=== PATIENT | male | born 1945 | race Caucasian/White ===

== ENCOUNTER 2018-11-11 06:18 | Day surgery (SDC) | payer MEDICARE ==
[~2018-11-11] VITALS: Ht 172.7 cm; Wt 110.0 kg
[2018-11-11 06:54] VITALS: BP 89/62
[2018-11-11] MEDS ORDERED: SENN-88 PO (07:20)
[2018-11-11] MEDS ORDERED: ATOR10TA9 PO (07:20)
[2018-11-11] MEDS ORDERED: insulin novolog SQ (07:20)
[2018-11-11] MEDS ORDERED: EPLE50TA PO (07:20)
[2018-11-11] MEDS ORDERED: ALLO100T30 PO (07:20)
[2018-11-11] MEDS ORDERED: AMIO200T42 PO (07:20)
[2018-11-11] MEDS ORDERED: ASPI81TA45 PO (07:20)
[2018-11-11] MEDS ORDERED: POTA20TA89 PO (07:20)
[2018-11-11] MEDS ORDERED: ISOS20TA58 PO (07:20)
[2018-11-11] MEDS ORDERED: WARF7.5T46 PO (07:20)
[2018-11-11] MEDS ORDERED: RANI150C PO (07:20)
[2018-11-11] MEDS ORDERED: FERR325T18 PO (07:20)
[2018-11-11] MEDS ORDERED: BUDE10.22 INH (07:20)
[2018-11-11] MEDS ORDERED: INSU100I13 SQ ×2 (07:20)
[2018-11-11] MEDS ORDERED: FURO-92 PO (07:20)
[2018-11-11] MEDS ORDERED: ISOS10TA2 PO (07:20)
[2018-11-11] MEDS ORDERED: WARF-36 PO (07:20)
[2018-11-11] MEDS ORDERED: SACU1TAB PO (07:20)
[2018-11-11] MEDS ORDERED: GABA600T7 PO (07:20)
[2018-11-11] MEDS ORDERED: METO5TAB5 PO (07:20)
[2018-11-11] MEDS ORDERED: CARV6.252 PO (07:20)
[2018-11-11] MEDS ORDERED: MEXITIL PO (07:20)
[2018-11-11] MEDS ORDERED: CHOL40002 PO (07:20)
[2018-11-11 07:34] LABS: INTERNATIONAL NORMALIZED RATIO 2.65 (0.93-1.1); PROTHROMBIN TIME 26.8 Seconds (9.6-11.5)
[2018-11-11 07:35] LABS: ANION GAP 7 mmol/L (5-15); CALCIUM 9.3 mg/dL (8.5-10.1); CHLORIDE 102 mmol/L (98-107); CREATININE 1.85 mg/dL (0.7-1.3)
[2018-11-11] MEDS ORDERED: PROPOFOL 10 MG/ML, 20ML ONE (16:16)
== END 2018-11-11 09:34 | disposition home or self-care (01) ==
LOC: CACL 06:18
PROVIDERS: ATTEND Internal Medicine Cardiovascular Disease
DX: I48.0 Paroxysmal atrial fibrillation (principal); E78.5 Hyperlipidemia, unspecified; I12.9 Hypertensive chronic kidney disease with stage 1 through stage 4 chronic kidney disease, or unspecified chronic kidney disease; N18.9 Chronic kidney disease, unspecified; E78.6 Lipoprotein deficiency; I47.2 Ventricular tachycardia; I11.0 Hypertensive heart disease with heart failure; I50.9 Heart failure, unspecified; I42.9 Cardiomyopathy, unspecified; Z79.82 Long term (current) use of aspirin; Z95.810 Presence of automatic (implantable) cardiac defibrillator; Z85.118 Personal history of other malignant neoplasm of bronchus and lung
CPT/HCPCS: 36415; 80048; 85610; 92960; J2704

== ENCOUNTER 2018-12-11 06:28 | Day surgery (SDC) | payer MEDICARE ==
[~2018-12-11] VITALS: Ht 172.7 cm; Wt 108.0 kg
[~2018-12-11 06:28] MED LIST: ALLO100T30 PO; AMIO200T42 PO; ASPI81TA45 PO; ATOR10TA9 PO; BUDE10.22 INH; CARV6.252 PO; CHOL40002 PO; EPLE50TA PO; FERR325T18 PO; FURO-92 PO; GABA600T7 PO; INSU100I13 SQ; ISOS10TA2 PO; ISOS20TA58 PO; METO5TAB5 PO; MEXITIL PO; POTA20TA89 PO; RANI150C PO; SACU1TAB PO; SENN-88 PO; WARF-36 PO; WARF7.5T46 PO; insulin novolog SQ
[2018-12-11] MEDS ORDERED: SODIUM CHLORIDE 0.9% 500 ML IV PRN (06:40)
[2018-12-11] MEDS ORDERED: BETA15CR5 TP (07:26)
[2018-12-11 07:27] VITALS: BP 99/62
[2018-12-11] MEDS ORDERED: PROPOFOL 10 MG/ML, 20ML ONE (07:47)
== END 2018-12-11 08:50 | disposition home or self-care (01) ==
LOC: CACL 06:28
PROVIDERS: ATTEND Internal Medicine Cardiovascular Disease
DX: I48.91 Unspecified atrial fibrillation (principal); I10 Essential (primary) hypertension; E78.5 Hyperlipidemia, unspecified; Z79.82 Long term (current) use of aspirin
CPT/HCPCS: 92960; J2704

== ENCOUNTER 2018-12-16 22:55 | Inpatient (IN) | payer MEDICARE ==
[~2018-12-16] VITALS: Ht 172.7 cm; Wt 108.5 kg
[~2018-12-16 22:55] MED LIST changes: +BETA15CR5 TP
--- NOTE | 2018-12-16 23:20 | NUR ---
PT RESTING ON GURNEY WITH HOB ELEVATED. OXYGEN AT 2 LITER NASAL CANNULA. VPACED ON [facility] 80-90'S. PT HAS HX OF AFIB WITH 2 CARDIOVERSIONS DONE THE LAST BEING ON December. PT ALSO HAS HX OF SMALL CELL LUNG CANCER WITH RADIATION. PT STATES "HE JUST DOESN'T FEEL WELL, FEELS LIKE MY HEART IS POUNDING." PT DENIES ANY CHEST PAIN.
[2018-12-16 23:51] LABS: BASOPHILS # (AUTO) 0.01 x10^3/uL (0-0.1); BASOPHILS % (AUTO) 0 % (0-1); EOSINOPHILS # (AUTO) 0.17 x10^3/uL (0-0.4); EOSINOPHILS % (AUTO) 3 % (1-7); LYMPHOCYTES # (AUTO) 0.45 x10^3/uL (1-3.4); LYMPHOCYTES % (AUTO) 8 % (22-44); MD NO; MEAN CORPUSCULAR HEMOGLOBIN 31.6 pg (27.5-34.5); MEAN CORPUSCULAR HGB CONC 33.5 g/dL (33.2-36.2); MEAN CORPUSCULAR VOLUME 94.3 fL (81-97); MEAN PLATELET VOLUME 9.5 fL (7.4-10.4); MONOCYTES # (AUTO) 0.88 x10^3/uL (0.2-0.8); MONOCYTES % (AUTO) 15 % (2-9); NEUTROPHILS # (AUTO) 4.44 x10^3/uL (1.8-6.8); NEUTROPHILS % (AUTO) 75 % (42-75); PLATELET COUNT 106 x10^3/uL (130-400); RED BLOOD COUNT 4.46 x10^6/uL (4.38-5.82); RED CELL DISTRIBUTION WIDTH 19.9 % (9.4-14.8)
[2018-12-17] VITALS (8 sets, daily range): BP systolic 80–122; BP diastolic 60–85
[2018-12-17 00:01] LABS: ALANINE AMINOTRANSFERASE 40 U/L (12-78); ALBUMIN 3.1 g/dL (3.4-5.0); ANION GAP 11 mmol/L (5-15); CALCIUM 8.5 mg/dL (8.5-10.1); CHLORIDE 100 mmol/L (98-107); CREATININE 2.55 mg/dL (0.7-1.3)
[2018-12-17 00:06] LABS: ALKALINE PHOSPHATASE 101 U/L (45-117); BILIRUBIN,TOTAL 0.3 mg/dL (0.2-1.0); FREE T4 (FREE THYROXINE) 1.22 ng/dL (0.76-1.46); TOTAL PROTEIN 6.3 g/dL (6.4-8.2); TROPONIN I 0.018 ng/mL (0.000-0.045)
[2018-12-17] MEDS ORDERED: POTASSIUM CHLORIDE 20 MEQ TAB.ER.PRT ONE (00:11)
[2018-12-17 00:12] LABS: THYROID STIMULATING HORMONE 0.409 mIU/L (0.358-3.740)
--- NOTE | 2018-12-17 00:15 | NUR ---
DR. CORTES AT BEDSIDE UPDATING PT ON POC.
[2018-12-17 00:25] LABS: INTERNATIONAL NORMALIZED RATIO 3.36 (0.93-1.1); PROTHROMBIN TIME 33.7 Seconds (9.6-11.5)
[2018-12-17] MEDS ORDERED: POTASSIUM CHLORIDE 20 MEQ TAB.ER.PRT PO ONE (00:30)
--- NOTE | 2018-12-17 01:08 | NUR ---
[facility] AT BEDSIDE.
[2018-12-17] MEDS ORDERED: AMIODARONE 900 MG in DEXTROSE 5% 482 ML IV PRN (01:30)
[2018-12-17] MEDS ORDERED: ONDANSETRON ODT 4 MG PO PRN (01:30)
[2018-12-17] MEDS ORDERED: ACETAMINOPHEN 325 MG TABLET PO PRN (01:30)
[2018-12-17] MEDS ORDERED: MAGNESIUM SULFATE PMX 2GM/50ML 50 ML IV ONE (03:00)
[2018-12-17] MEDS ORDERED: GLUCAGON 1 MG IM PRN (06:30)
[2018-12-17] MEDS ORDERED: DEXTROSE 50%, 50ML SYRINGE IVPush PRN (06:30)
[2018-12-17] MEDS ORDERED: DEXTROSE 4 GM TAB.CHEW PO PRN (06:30)
[2018-12-17] MEDS ORDERED: ALBUTEROL SULFATE 2.5 MG/3 ML NPPB SCH (07:00)
[2018-12-17 07:35] LABS: INTERNATIONAL NORMALIZED RATIO 3.1 (0.93-1.1); PROTHROMBIN TIME 31.2 Seconds (9.6-11.5)
[2018-12-17 07:38] LABS: MD NO; MEAN CORPUSCULAR HEMOGLOBIN 30.3 pg (27.5-34.5); MEAN CORPUSCULAR HGB CONC 32.4 g/dL (33.2-36.2); MEAN CORPUSCULAR VOLUME 93.6 fL (81-97); MEAN PLATELET VOLUME 10.2 fL (7.4-10.4); PLATELET COUNT 112 x10^3/uL (130-400); RED BLOOD COUNT 4.67 x10^6/uL (4.38-5.82); RED CELL DISTRIBUTION WIDTH 19.3 % (9.4-14.8)
[2018-12-17 07:39] LABS: BASOPHILS % (AUTO) 0 % (0-1); EOSINOPHILS % (AUTO) 3 % (1-7); LYMPHOCYTES % (AUTO) 7 % (22-44); MONOCYTES % (AUTO) 16 % (2-9); NEUTROPHILS % (AUTO) 74 % (42-75)
[2018-12-17 07:40] LABS: EOSINOPHILS # (AUTO) 0.16 x10^3/uL (0-0.4); LYMPHOCYTES # (AUTO) 0.43 x10^3/uL (1-3.4); MONOCYTES # (AUTO) 0.94 x10^3/uL (0.2-0.8); NEUTROPHILS # (AUTO) 4.28 x10^3/uL (1.8-6.8)
[2018-12-17 07:56] LABS: ALBUMIN 3.2 g/dL (3.4-5.0); ANION GAP 9 mmol/L (5-15); CALCIUM 8.9 mg/dL (8.5-10.1); CHLORIDE 101 mmol/L (98-107)
[2018-12-17 07:59] LABS: ALANINE AMINOTRANSFERASE 42 U/L (12-78); ALKALINE PHOSPHATASE 101 U/L (45-117); BILIRUBIN,TOTAL 0.5 mg/dL (0.2-1.0); CREATININE 1.98 mg/dL (0.7-1.3); TOTAL PROTEIN 6.5 g/dL (6.4-8.2)
[2018-12-17 08:09] LABS: TROPONIN I 0.026 ng/mL (0.000-0.045)
[2018-12-17 08:19] LABS: MICROSCOPIC NOT IND
[2018-12-17] MEDS ORDERED: GABAPENTIN 300 MG CAPSULE PO SCH (09:00)
[2018-12-17] MEDS ORDERED: FAMOTIDINE 20 MG TABLET PO SCH (09:00)
[2018-12-17] MEDS ORDERED: POTASSIUM CHLORIDE 20 MEQ TAB.ER.PRT PO SCH (09:00)
[2018-12-17] MEDS ORDERED: AMIODARONE 200 MG TABLET PO SCH (09:00)
[2018-12-17] MEDS ORDERED: ALLOPURINOL 100 MG TABLET PO SCH (09:00)
[2018-12-17] MEDS ORDERED: SODIUM CHLORIDE FLUSH 10ML SYR IVF SCH (09:00)
[2018-12-17] MEDS ORDERED: ISOSORBIDE DINITRATE 10 MG TABLET PO SCH (09:00)
[2018-12-17] MEDS ORDERED: EPLERENONE 50 MG TABLET PO SCH (09:00)
[2018-12-17] MEDS ORDERED: FUROSEMIDE 40 MG TABLET PO SCH (09:00)
[2018-12-17] MEDS ORDERED: ASPIRIN 81 MG TABLET EC PO SCH (09:00)
[2018-12-17] MEDS ORDERED: BUDESONIDE 0.5 MG/2 ML INHA NPPB SCH (09:00)
[2018-12-17] MEDS ORDERED: INSULIN GLARGINE 100 UNITS/ML, PEN SQ-INSULIN SCH ×2 (09:00→21:00)
[2018-12-17] MEDS ORDERED: VANCOMYCIN 50 MG/ML ORAL SUSP PO SCH (09:00)
[2018-12-17] MEDS: INSULIN LISPRO 100 UNITS/ML, PEN SQ-INSULIN SCH ×3 (10:37→16:00)
[2018-12-17] MEDS: CLOTRIMAZOLE TROCHES 10 MG PO SCH ×2 (10:44→17:37)
[2018-12-17] MEDS: FERROUS SULFATE 325 MG TABLET PO SCH ×2 (10:45→17:37)
[2018-12-17] MEDS ORDERED: SODIUM CHLORIDE 0.9% 1,000 ML IV SCH (11:29)
[2018-12-17] MEDS ORDERED: PHARMACY MAY ADJ FOR RENAL FX MC PRN (12:00)
[2018-12-17] MEDS ORDERED: WARFARIN 5 MG TABLET PO-COUM ONE (18:00)
[2018-12-17] MEDS ORDERED: ATORVASTATIN 10 MG TABLET PO SCH (21:00)
[2018-12-17] MEDS ORDERED: METOLAZONE 5 MG TABLET PO SCH ×2 (21:00)
[2018-12-18] MEDS ORDERED: EPLERENONE 50 MG TABLET PO SCH (09:00)
== END 2018-12-17 20:20 | disposition left against medical advice (07) | DRG 682 ==
LOC: ED 23:51 → EDIP 12-17 01:26 → 5SO 12-17 01:58
PROVIDERS: ADMIT Internal Medicine; ATTEND Internal Medicine
PROC: 4B02XSZ Measurement of Cardiac Pacemaker, External Approach (ICD-10-PCS; principal; 2018-12-17)
DX: N17.9 Acute kidney failure, unspecified (principal); J96.00 Acute respiratory failure, unspecified whether with hypoxia or hypercapnia; I48.1 Persistent atrial fibrillation; C34.90 Malignant neoplasm of unspecified part of unspecified bronchus or lung; I50.9 Heart failure, unspecified; Z53.21 Procedure and treatment not carried out due to patient leaving prior to being seen by health care provider; E87.6 Hypokalemia; N18.9 Chronic kidney disease, unspecified; Z79.899 Other long term (current) drug therapy; Z87.891 Personal history of nicotine dependence; Z92.21 Personal history of antineoplastic chemotherapy; Z92.3 Personal history of irradiation; Z95.0 Presence of cardiac pacemaker; Z95.2 Presence of prosthetic heart valve; Z96.643 Presence of artificial hip joint, bilateral; I95.9 Hypotension, unspecified
CPT/HCPCS: 36415; 71045; 76770; 80053; 81003; 82962; 83735; 84439; 84443; 84484; 85025; 85610; 85730; 87040; 93005; 99285; C8929; G0378; J3370; Q9957; J1815; J3475; J7030